=== PATIENT | male | born 1955 | race Caucasian/White ===

== ENCOUNTER 2018-06-07 11:38 | Inpatient (IN) | payer OTHER ==
[~2018-06-07] VITALS: Ht 177.8 cm; Wt 94.4 kg
[~2018-06-07 11:38] MED LIST: COMBIVENT INH; LEVAQUIN 500 M500 M2 PO; NEXIUM40 MG PO; PREDNISONE 1 MG1 M1 PO; PREDNISONE 20 M20 MG PO; SINGULAIR 10 MG10 M1 PO; SYMBICORT160 MCG/4. INH; TESSALON PERLE100 MG PO; VENTOLIN HFA 1818 GM INH
[2018-06-07 11:44] VITALS: BP 139/61
[2018-06-07 11:57] LABS: ABSOLUTE BASOPHILS 0.1 thou/uL (0.0-0.2); ABSOLUTE EOSINOPHILS 0.7 thou/uL (0.0-0.7); ABSOLUTE LYMPHOCYTES 1.9 thou/uL (0.8-5.3); ABSOLUTE MONOCYTES 0.7 thou/uL (0.0-1.2); BASOPHILS 0.7 %; HEMATOCRIT 50.9 % (42.0-52.0); HEMOGLOBIN 17.5 gm/dL (14.0-18.0); LYMPHOCYTES 18.5 %; MCH 32.3 pg (26.0-34.0); MCHC 34.3 g/dL (28.0-37.0); MCV 94.2 fL (80.0-100.0); MONOCYTES 6.5 %; MPV 7.3 fl. (7.2-11.1); NUCLEATED RBCS 0 /100WBC; PLATELET COUNT* 307 thou/uL (150-400); POLYS 67.3 %; RDW-CV 12.8 % (10.5-14.5); WBC 10.4 thou/uL (4.0-11.0)
[2018-06-07 12:07] LABS: ANION GAP 5 mmol/L (7-16); BUN 6 mg/dL (7-18); CALCIUM 8.9 mg/dL (8.5-10.1); CHLORIDE 105 mmol/L (98-107); CO2 28 mmol/L (21-32); CREATININE 0.7 mg/dL (0.6-1.3); GLUCOSE 115 mg/dL (70-99); SODIUM 138 mmol/L (136-145)
[2018-06-07 12:18] LABS: ALBUMIN 3.1 g/dL (3.4-5.0); ALKALINE PHOSPHATASE 114 U/L (46-116); LIPASE 52 U/L (73-393); MAGNESIUM 1.6 mg/dL (1.8-2.4); NT-PRO BRAIN NAT PEPTIDE 130 pg/mL (<300); SGOT 12 U/L (15-37); SGPT 19 U/L (30-65); TOTAL BILIRUBIN 0.8 mg/dL (<0.1-1.0); TOTAL PROTEIN 7.6 g/dL (6.4-8.2); TROPONIN-I LEVEL <0.06 ng/mL (<0.06)
[2018-06-07 14:44] VITALS: BP 142/74
[2018-06-07 14:53] VITALS: BP 142/73
--- NOTE | 2018-06-07 15:50 | NUR ---
ADMISSION ASSESSMENT COMPLETED REFER TO COMPUTER CHARTING. ROBOTICS MECHANIC TRACKING SR. PATIENT RESTING IN BED REPORTING NO PAIN, NAUSEA OR INCREASED SHORTNESS OF AIR. BED IN LOW AND LOCKED POSITION. CALL LIGHT WITHIN REACH. IV FLUIDS INFUSING IN RIGHT AC. ON 2 LITERS O2 VIA NASAL CANNULA. PATIENT UP SELF IN ROOM. PATIENT ORIENTATED TO ROOM AND CALL LIGHT. WILL CONTINUE TO MONITOR.
--- NOTE | 2018-06-07 18:17 | NUR ---
PATIENT CALLED FOR THIS NURSE TO COME TO PATIENTS ROOM. PATIENT UPSET NO TOLIET PAPER IN BATHROOM AND UPSET WITH MEAL. PATIENT GIVEN MENU AND NEW ORDER PLACED AND BROUGHT TO ROOM FROM HOUSE SUPERVISIOR. PATIENT REPORTING NOT SEEING HIS NURSE IN 45 MINS AND WAS NOT SATISFIED WITH THIS NURSE THE CHARGE NURSE WITH "ASSISTING ANOTHER NURSE WITH AN UPSET PATIENT IN ANOTHER ROOM." [employer]ENT REPORTING THAT SHE WELL WAS WITH THE UPSET PATIENT AND WAS UNABLE TO SATIFY PATIENT. WILL CONTINUE TO MONITOR THIS PATIENT THIS SHIFT.
[2018-06-07 20:00] VITALS: BP 148/48
[2018-06-07 23:30] VITALS: BP 134/61
[2018-06-08 04:00] VITALS: BP 126/72
[2018-06-08 05:16] LABS: HEMATOCRIT 50.2 % (42.0-52.0); HEMOGLOBIN 16.6 gm/dL (14.0-18.0); MCH 31.8 pg (26.0-34.0); MCHC 33.1 g/dL (28.0-37.0); MCV 96.1 fL (80.0-100.0); MPV 8.1 fl. (7.2-11.1); RBC 5.22 mil/uL (4.50-6.00); RDW-CV 12.9 % (10.5-14.5); WBC 13.3 thou/uL (4.0-11.0)
--- NOTE | 2018-06-08 05:22 | NUR ---
ASSUMED PT CARE AT 1930. NURSING ASSESSMENT COMPLETED AT START OF SHIFT. 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 PT COUGHING INTERMITTENTLY THROUGHOUT SHIFT, DENIES COUGHING UP SPUTUM, STATES IT'S DRY COUGH. IV FLUIDS INFUSING, HOURLY ROUNDING COMPLETED, CALL LIGHT WITHIN REACH.
[2018-06-08 05:33] LABS: CALCIUM 8.7 mg/dL (8.5-10.1); CREATININE 0.7 mg/dL (0.6-1.3); MAGNESIUM 1.6 mg/dL (1.8-2.4); POTASSIUM 4.2 mmol/L (3.5-5.1)
[2018-06-08 08:00] VITALS: BP 125/59
--- NOTE | 2018-06-08 12:00 | NUR ---
Pt is A&O. Resides at home with his . Independent with ADLs, continues to work outside of the home. No DME. Pt does not have home o2. No hx of HH or SNF. Goal is to return home at ia. Following for disposition.
[2018-06-08 12:35] VITALS: BP 131/71
--- NOTE | 2018-06-08 13:01 | NUR ---
VSS, ASSUMED CARE IN THE AM, ASSESSMENT PERFROMED AND CHARTED, FALL PRECAUTIONS IN PLACE AND CALL LIGHT IN REACH, PT IS A&O4 AND ON 2L NC AND UP AD YANI, PT DENIES ANY PAIN AND HIS GOAL IS TO IMPROVE BREATHIG AND WALK THE UNIT, PT IS TRACING SR ON THE MONITOR, WILL FOLLOW WITH PLAN OF CARE.
[2018-06-08 15:29] VITALS: BP 138/58
--- NOTE | 2018-06-08 18:20 | NUR ---
VSS, PT IS PROGRESSING TOWARDS GOAL, HIS BREATHING HAS IMPROVED AND IS ON RA AT THIS TIME, HE HAS WALKED THE UNIT AND IS TRACING SR ON THE MONITOR, PT DENIES ANY PAIN AND HOURLY ROUNDS COMPLETED,
[2018-06-08 20:00] VITALS: BP 140/60
[2018-06-08 22:55] LABS: CALCIUM 8.8 mg/dL (8.5-10.1); CREATININE 0.8 mg/dL (0.6-1.3); MAGNESIUM 1.9 mg/dL (1.8-2.4); POTASSIUM 4.2 mmol/L (3.5-5.1)
[2018-06-09 00:08] VITALS: BP 125/62
--- NOTE | 2018-06-09 03:04 | NUR ---
PT ALERT ORIENTED. UP AD YANI IN ROOM. ON RA O2 SAT 92% PT STATES THAT IS HIS NORM ON RA. TELEMETRY SHOWS ST. APPROX 2200 PT HAD 5 BEAT VT WITH SINUS BEAT THEN 25 BEAT V-TACH. ASYPTOMATIC PT STATES HE FELT NOTHING AND WAS SLEEPING. MAG AND BMP DRAWN (WNL). CARDIOLOGY CONSULTED. NO FURTHER EPISOIDS. WILL CONTINUE TO MONITOR.
[2018-06-09 04:39] VITALS: BP 151/64
[2018-06-09 07:30] VITALS: BP 121/56
--- NOTE | 2018-06-09 13:28 | EKG ---
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 VERMA : 1955 Requested By: Les Geller Order Number: [id number] MD: Jayme Latham Measurements Intervals [place] Rate: 84 P: 60 NE: 134 QRS: 34 QRSD: 86 T: 65 QT: 398 QTc: 471 Interpretive Statements Sinus rhythm Ventricular premature complex Probable left atrial enlargement Baseline wander in lead(s) V5 Compared to ECG 09/01/2017 11:06:45 Ventricular premature complex(es) now present Electronically Signed On 06-09-2018 13:28:43 CDT by Jayme Latham [email or web address] <ELECTRONICALLY SIGNED> By: Jayme Latham MD, [facility] 06/09/18 1328 1157 1157 Jayme Latham MD, [facility] /EPI
--- NOTE | 2018-06-09 13:31 | NUR ---
RECEIVED PT CARE 0700. HE IS ALERT AND ORIENTED X4. VSS. 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 AM ASSESSMENT CHARTED. MEDS PER MAR. O2 SAT 91% ON ROOM AIR. HE IS UP AD YANI IN HIS ROOM WITH BATHROOM PRIVILEDGES. GAIT IS STEADY. PLANNING FOR DC TO HOME TOMORROW IF STABLE. WILL CONTINUE TO MONITOR.
--- NOTE | 2018-06-09 15:14 | 2DMMODE ---
[place] [address] 2 D/M-MODE ECHOCARDIOGRAM Name: ROBERT BUTLER Room: [address] IN [facility]#: [id number] Admission: 06/07/18 Attend Phys: Jack Jones, Discharge: Date of : 57 Date of Service: 06/09/18 1514 Report #: [id number] THIS REPORT FOR: //name// APPROVED REPORT Study performed: 06/09/2018 11:00:47 EXAM: Comprehensive 2D, Doppler, and color-flow Echocardiogram Patient Location: In-Patient Room #: [facility] Status: routine BSA: 2.11 HR: 65 bpm BP: 121/56 mmHg Rhythm: NSR Other Information Study Quality: Good Indications Dyspnea NSVT 2D Dimensions LVEF(%): 68.65 (>50%) IVSd: 14.68 (7-11mm) LVOT Diam: 20.00 (18-24mm) LVDd: 38.54 mm PWd: 10.91 (7-11mm) Ascending Ao: 32.45 (22-36mm) LVDs: 23.96 (25-40mm) Aortic Root: 30.26 mm Kumar's LVEF: 68.65 % Volumes Left Atrial Volume (Systole) LA ESV Index: 32.20 mL/m2 Aortic Valve AoV Peak Nakul.: 1.54 m/s AO Peak Gr.: 9.49 mmHg LVOT Max P.93 mmHg AO Mean Gr.: 4.76 mmHg LVOT Mean P.66 mmHg LVOT Max V: 1.22 m/s AO V2 VTI: 31.59 cm LVOT Mean V: 0.74 m/s MONET (VTI): 2.72 cm2 LVOT V1 VTI: 27.35 [place] [address] 2 D/M-MODE ECHOCARDIOGRAM Name: ROBERT BUTLER Room: [address] IN .R.#: [id number] Admission: 06/07/18 Attend Phys: Jack Jones, Discharge: Date of : 57 Date of Service: 06/09/18 1514 Report #: [id number] E/A Ratio: 1.22 MV Decel. Time: 229.99 ms MV E Max Nakul.: 1.10 m/s MV PHT: 66.70 ms MVA (PHT): 3.30 cm2 TDI E/Lateral E': 9.17 E/Medial E': 8.46 Medial E' Nakul.: 0.13 m/s Lateral E' Nakul.: 0.12 m/s Pulmonary Valve PV Peak Nakul.: 1.05 m/s PV Peak Gr.: 4.39 mmHg Left Ventricle The left ventricle is normal size. There is normal LV segmental wall motion. Mild concentric left ventricular hypertrophy. Left ventricular systolic function is normal. The left ventricular ejection fraction is within the normal range. LVEF is 65-70%. The left ventricular diastolic function is normal. Right Ventricle Right ventricle is dilated. The right ventricular systolic function is mildly reduced Atria The left atrium size is moderately dilated Right atrium is dilated. Aortic Valve The aortic valve is normal in structure. No aortic regurgitation is present. There is no aortic valvular stenosis. Mitral Valve Mitral valve leaflets are mildly thickened. Trace mitral regurgitation. No evidence of mitral valve stenosis. Tricuspid Valve The tricuspid valve is normal in structure. Unable to assess PA pressure. Trace tricuspid regurgitation. Pulmonic Valve The pulmonary valve is normal in structure. There is no pulmonic [place] [address] 2 D/M-MODE ECHOCARDIOGRAM Name: ROBERT BUTLER Room: [address] IN [facility]#: [id number] Admission: 06/07/18 Attend Phys: Jack Jones, Discharge: Date of : 57 Date of Service: 06/09/18 1514 Report #: [id number] The aortic root is normal in size. IVC is normal in size and collapses with >50% inspiration Pericardium There is no pericardial effusion. <Conclusion> The left ventricle is normal size. Mild concentric left ventricular hypertrophy. LVEF is 65-70%. There is normal LV segmental wall motion. Right ventricle is dilated. The right ventricular systolic function is mildly reduced The left atrium size is moderately dilated Right atrium is dilated. There is no aortic valvular stenosis. No aortic regurgitation is present. Mitral valve leaflets are mildly thickened. No evidence of mitral valve stenosis. Trace mitral regurgitation. <ELECTRONICALLY SIGNED> By: Jayme Latham MD, FACC 06/09/18 1514 1514 1514 Jayme Latham MD, FACC /INF
[2018-06-09 15:40] VITALS: BP 119/49
--- NOTE | 2018-06-09 19:04 | NUR ---
PATIENT PARTIALLY PROGRESSING TOWARDS GOALS. UP AMBULATORY IN ROOM WITH BATHROOM PRIVILEDGES. GAIT IS STEADY. 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 CARDIOLOGY AND DR MADSEN NOTIFIED. NEW ORDERS RECEIVED FOR CARDIZEM GTT. BLOOD PRESSURE STABLE. PATIENT UPDATED ON PLAN OF CARE. HE IS TOLERATING HIS DIET WELL WITHOUT ANY NAUSEA OR VOMITING. HOURLY ROUNDING CHARTED. CALL LIGHT WITHIN REACH. WILL CONTINUE TO MONITOR.
[2018-06-09 20:00] VITALS: BP 97/51
[2018-06-10] VITALS (8 sets, daily range): BP systolic 103–148; BP diastolic 60–93
--- NOTE | 2018-06-10 03:02 | NUR ---
PT ALERT ORIENTED. UP AD YANI IN ROOM. ON CARDIZEM QTT AT 20MG/HR. INITALLY TELEMETRY AFIB RVR UP TO 150S. HR NOW IN THE 90S. WILL CONTINUE TO MONITOR.
--- NOTE | 2018-06-10 06:33 | NUR ---
CARDIZEM QTT TITRATED DOWN TO 15MG/HR. TELEMETRY REMAINS AFIB 80S-90S. OCCASIONAL NONPRODUCTIVE COUGHING NOTED.
--- NOTE | 2018-06-10 17:22 | NUR ---
ASSUMED CARE OF PT AT 0730. PT REAMINES A&O CALM AND COOPERATIVE. PT HAS HAD NO C/O PAIN AND VSS ON 2L VIA NC. PT UP AD YANI IN HIS ROOM AND HAS A STEADY GAIT. PT STARTED ON ORAL CARDIZEM AND IV CARDIZEM DISCONTINUED. RATE HAS SINCE BEEN IN THE 60'S. PT HAS A GOOD APPETITE AND HAS ATE GREATER THAN 75% OF HIS MEALS. PT CONTINUES TO HAVE A HARSH NONPRODUCTIVE COUGH. NURSING WILL CONTINUE TO MONITOR FOR COMFORT AND SAFTEY.
[2018-06-11] VITALS: BP 153/71
[2018-06-11 04:00] VITALS: BP 158/68
--- NOTE | 2018-06-11 05:13 | NUR ---
ASSUMED PT CARE AT 19:15 DAY SHIFT NURSE HAS LEFT AND LEFT REPORT PAPER. PT IS ALERT AWAKE ORIENTED X 4. AT BEDSIDE., DOES NOT COMLAIN OF ANY PAIN. PT HAS BEEN SINUS RYTH ON THE MONITOR FOR THE WHOLE NIGHT THOUGH HE WAS SAID TO BE A FIB ON REPRT PAPER. PT IS RESTING IN BED. SLEPT DURING THE WHOLE NIGHT. POSSIBLE DISCHARGE PENDING FOR TODAY.
[2018-06-11 08:00] VITALS: BP 129/67
[2018-06-11] MEDS ORDERED: AZITHROMYCIN 2250 MG PO (11:08)
[2018-06-11] MEDS ORDERED: ASPIR 8181 MG PO (11:08)
[2018-06-11] MEDS ORDERED: CARDIZEM CD240 MG PO (11:08)
[2018-06-11] MEDS ORDERED: PREDNISONE 10 M10 MG PO (11:08)
[2018-06-11] MEDS ORDERED: CEFDINIR300 MG PO (11:08)
[2018-06-11] MEDS ORDERED: IPRAT-ALBUT 0.5-3 ML INH (11:08)
[2018-06-11] MEDS ORDERED: FLECAINIDE ACET50 M1 PO (11:08)
[2018-06-11] MEDS ORDERED: MUCINEX600 MG PO (11:08)
[2018-06-11 11:40] VITALS: BP 155/58
[2018-06-11 12:34] VITALS: BP 103/60
--- NOTE | 2018-06-11 12:53 | EKG ---
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: : 1955 Requested By: Heidi Son Order Number: [id number] MD: Fran Redmond Measurements Intervals [place] Rate: 156 P: PA: QRS: 32 QRSD: 82 T: 224 QT: 252 QTc: 406 Interpretive Statements Atrial fibrillation with rapid V-rate Repolarization abnormality, prob rate related Baseline wander in lead(s) V6 Compared to ECG 06/07/2018 11:57:25 Early repolarization now present Sinus rhythm no longer present Ventricular premature complex(es) no longer present Electronically Signed On 06-11-2018 12:53:03 CDT by Fran Redmond [email or web address] <ELECTRONICALLY SIGNED> By: Fran Redmond MD, [facility] 06/11/18 1253 1645 1645 Fran Redmond MD, [facility] /EPI
--- NOTE | 2018-06-11 13:14 | NUR ---
ASSUMED CARE OF PT THIS AM ASSESSED AND DOCUMENTED. PT D/C'D TO HOME. ALL CONSULTS OK WITH D/C. IV AND CARDIAC MONITER D/C'D. EDUCATION GIVEN RE FOLLOW-UPS, MEDICATIONS, AND DRS ORDERS. SCRIPTS GIVEN. ALL BELONGINGS PACKED UP AND LEFT WITH PT ACCOMPANIED BY .
== END 2018-06-11 13:15 | disposition home or self-care (01) | DRG 189 ==
LOC: M.ERS 11:38 → M.2W 13:52 → M.TBA-ER 13:52 → M.2W 14:51
PROVIDERS: Emergency Medicine Emergency Medical Services; Internal Medicine; ADMIT Internal Medicine
DX: J96.01 Acute respiratory failure with hypoxia (principal); R65.11 Systemic inflammatory response syndrome (SIRS) of non-infectious origin with acute organ dysfunction; J44.1 Chronic obstructive pulmonary disease with (acute) exacerbation; E87.2 Acidosis; I47.1 Supraventricular tachycardia; J20.8 Acute bronchitis due to other specified organisms; K21.9 Gastro-esophageal reflux disease without esophagitis; I10 Essential (primary) hypertension; I48.91 Unspecified atrial fibrillation; F17.210 Nicotine dependence, cigarettes, uncomplicated; Z79.899 Other long term (current) drug therapy; Z79.82 Long term (current) use of aspirin

== ENCOUNTER 2018-07-20 20:51 | Inpatient (IN) | payer OTHER ==
[~2018-07-20] VITALS: Ht 177.8 cm; Wt 91.6 kg
[~2018-07-20 20:51] MED LIST changes: +ASPIR 8181 MG PO; +AZITHROMYCIN 2250 MG PO; +CARDIZEM CD240 MG PO; +CEFDINIR300 MG PO; +FLECAINIDE ACET50 M1 PO; +IPRAT-ALBUT 0.5-3 ML INH; +MUCINEX600 MG PO; +PREDNISONE 10 M10 MG PO
[2018-07-20 21:03] VITALS: BP 137/85
[2018-07-20 21:46] LABS: ABSOLUTE BASOPHILS 0.1 thou/uL (0.0-0.2); ABSOLUTE EOSINOPHILS 0.9 thou/uL (0.0-0.7); ABSOLUTE LYMPHOCYTES 3.5 thou/uL (0.8-5.3); ABSOLUTE MONOCYTES 0.9 thou/uL (0.0-1.2); BASOPHILS 0.7 %; EOSINOPHILS 5.7 %; HEMOGLOBIN 17.9 gm/dL (14.0-18.0); LYMPHOCYTES 22.7 %; MCH 31.5 pg (26.0-34.0); MCHC 33.7 g/dL (28.0-37.0); MCV 93.4 fL (80.0-100.0); MONOCYTES 5.9 %; MPV 7.5 fl. (7.2-11.1); NUCLEATED RBCS 0 /100WBC; PLATELET COUNT* 290 thou/uL (150-400); RBC 5.67 mil/uL (4.50-6.00); RDW-CV 13.3 % (10.5-14.5); WBC 15.4 thou/uL (4.0-11.0)
[2018-07-20 21:55] LABS: ANION GAP 8 mmol/L (7-16); BUN 9 mg/dL (7-18); CALCIUM 8.6 mg/dL (8.5-10.1); CHLORIDE 105 mmol/L (98-107); CO2 27 mmol/L (21-32); CREATININE 0.7 mg/dL (0.6-1.3); GLUCOSE 94 mg/dL (70-99); SODIUM 140 mmol/L (136-145)
[2018-07-20 21:58] LABS: INR 1.1; PROTIME 11.1 Seconds (9.20-11.50)
[2018-07-20 22:10] LABS: ALBUMIN 3.1 g/dL (3.4-5.0); ALKALINE PHOSPHATASE 118 U/L (46-116); LIPASE 42 U/L (73-393); SGOT 12 U/L (15-37); SGPT 18 U/L (30-65); TOTAL PROTEIN 7.1 g/dL (6.4-8.2); TROPONIN-I LEVEL <0.06 ng/mL (<0.06)
[2018-07-20 23:45] VITALS: BP 159/72
[2018-07-21] VITALS: BP 158/81
[2018-07-21 04:00] VITALS: BP 121/65
[2018-07-21 07:48] VITALS: BP 114/66
--- NOTE | 2018-07-21 09:39 | EKG ---
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 : 1955 Requested By: Gabriela Lynch Order Number: [id number] MD: Jayme Latham Measurements Intervals [place] Rate: 70 P: 63 MI: 141 QRS: 44 QRSD: 88 T: 72 QT: 419 QTc: 453 Interpretive Statements Sinus rhythm Probable left atrial enlargement Baseline wander in lead(s) V4 Compared to ECG 06/09/2018 16:45:26 Atrial fibrillation no longer present Early repolarization no longer present Electronically Signed On 07-21-2018 9:39:46 CDT by Jayme Latham [email or web address] <ELECTRONICALLY SIGNED> By: Jayme Latham MD, [facility] 07/21/18 0939 05 05 Jayme Latham MD, [facility] /EPI
[2018-07-21 12:00] VITALS: BP 137/77
[2018-07-21 15:38] VITALS: BP 136/62
[2018-07-21 20:00] VITALS: BP 132/49
[2018-07-22 07:58] VITALS: BP 107/49
[2018-07-22] MEDS ORDERED: SINGULAIR 10 MG10 M1 PO (08:53)
[2018-07-22] MEDS ORDERED: NEXIUM40 MG PO (08:53)
[2018-07-22] MEDS ORDERED: CEFDINIR300 MG PO (08:53)
[2018-07-22] MEDS ORDERED: AZITHROMYCIN 2250 MG PO (08:53)
[2018-07-22] MEDS ORDERED: MUCINEX600 MG PO (08:53)
[2018-07-22] MEDS ORDERED: PREDNISONE 10 M10 MG PO (08:53)
[2018-07-22 09:32] VITALS: BP 107/49
[2018-07-22 11:14] LABS: HEMATOCRIT 47.8 % (42.0-52.0); HEMOGLOBIN 15.7 gm/dL (14.0-18.0); MCHC 32.8 g/dL (28.0-37.0); MCV 94.3 fL (80.0-100.0); MPV 8.3 fl. (7.2-11.1); RBC 5.07 mil/uL (4.50-6.00); RDW-CV 13.6 % (10.5-14.5); WBC 29.9 thou/uL (4.0-11.0)
[2018-07-22 11:28] LABS: CALCIUM 8.5 mg/dL (8.5-10.1); CREATININE 1.1 mg/dL (0.6-1.3); MAGNESIUM 1.7 mg/dL (1.8-2.4); POTASSIUM 4.1 mmol/L (3.5-5.1)
--- NOTE | 2018-07-22 11:30 | CON ---
[address] [address] CONSULTATION Name: ROBERT BUTLER Room: [address] IN M.R.#: [id number] Admission: 07/20/18 Attend Phys: Albino Garcia Discharge: Date of : 57 Report #: [id number] THIS REPORT FOR: //name// CC: Shaka Alcocer DATE OF SERVICE: 07/21/2018 REQUESTED BY: Dr. Jones. INDICATION FOR CONSULTATION: COPD exacerbation. HISTORY OF PRESENT ILLNESS: This is a 63-year-old gentleman with past medical history as mentioned below. 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 The patient was only recently admitted to this hospital and was discharged on 06/11/2018. Previous admission was with COPD exacerbation. During the previous hospitalization, the patient did have supraventricular tachycardia, paroxysmal as well as atrial fibrillation with RVR. He was seen by the cardiology service. He was started on cardiac medications. He eventually was maintaining a sinus rhythm prior to discharge. The patient therefore was not on full anticoagulation, was only on aspirin upon last discharge. He was given a prednisone taper upon last discharge. The patient yesterday was scheduled for a stress test. He did undergo the stress test. He was told to hold his Cardizem as well as flecainide for the stress test. The patient was reported to be in atrial fibrillation at the time of the stress test. Subsequent to this, he developed increasing shortness of breath, which is the reason for this admission. At this time, he essentially has no other complaints with the exception that he does have a dry cough. There is no chest pain. There are no upper respiratory complaints. There is no heartburn. There is no swelling of lower extremities. He does work late at night, usually in the evenings up to 11 at times up to even 3:00 a.m. He says that he does not perceive any significant disturbed sleep and sleepiness during the day. He usually sleeps on his sides. I did, however, consider the possibility that the patient may have some sleepiness during the day, but he may not be fully aware of it on account of it being present for a long period of time. REVIEW OF SYSTEMS: A 12-point review of systems is performed and is negative except as mentioned above. PAST MEDICAL HISTORY: COPD. I do not have previous PFTs available. He has had a recent echocardiogram. The patient's left ventricular ejection fraction is 65-70%. His pulmonary artery systolic is not elevated during this echo. He has also had a stress test just yesterday, which is unremarkable [place] [address] CONSULTATION Name: ROBERT BUTLER Room: [address] IN .R.#: [id number] Admission: 07/20/18 Attend Phys: Albino Garcia Discharge: Date of : 57 Report #: [id number] of atrial fibrillation as mentioned. The patient also did have a history of atrial fibrillation as well as supraventricular tachycardia during the previous hospitalization. He is currently in a sinus rhythm. Gastroesophageal reflux disease, collapsed lung 5 years ago. SOCIAL HISTORY: Active smoker, has cut down to 1/2 pack a day. He says he smoked more than a pack a day for several decades in the past. He has had some exposure to coal dust at work. He says that he drinks 2 or 3 beers around 3 times a week. No known history of illegal drug use. CURRENT MEDICATIONS: List in [facility] reviewed. HOME MEDICATIONS: List also in [facility] reviewed. FAMILY HISTORY: There is no pertinent family history. ALLERGIES: No known drug allergies. PHYSICAL EXAMINATION: GENERAL: He is alert, awake and oriented, does not appear to be in any distress at this time. VITAL SIGNS: Has a pulse of 71 and a blood pressure of 114/66. He is on room air. He is maintaining O2 saturations in the low 90s. He is afebrile with a temperature of 36.4. His respiratory rate is 18-20. HEENT: Head is normocephalic and atraumatic. Pupils are equal and reactive. There is no throat erythema. He does have a narrow airway. NECK: Does not show raised JVP, asymmetry, mass or lymph nodes. CHEST: Symmetrical expansion on inspection and palpation. On auscultation, there are loud inspiratory as well as expiratory wheezes. Expirations are prolonged. Breath sounds are bilaterally equal. HEART: Regular. There is no murmur. ABDOMEN: Soft and nontender. EXTREMITIES: Lower extremities show no edema, no calf tenderness. SKIN: Dry and intact. NEUROLOGICAL: Moves all extremities bilaterally equally and spontaneously with no focal deficit identified. The patient's chest x-ray as well as lab work is in [facility] and this is reviewed. ASSESSMENT AND PLAN: 1. Shortness of breath. The patient does appear to be actively bronchospastic on exam. Also, he had an episode of atrial fibrillation yesterday. The primary reason for shortness of breath appears to be bronchospasm. 2. Chronic obstructive pulmonary disease exacerbation. In the short term, I agree with current therapy. He is on DuoNeb as well as Solu-Medrol. He will [address] [place] [address] CONSULTATION Name: ROBERT BUTLER Room: [address] IN M.R.#: [id number] Admission: 07/20/18 Attend Phys: Albino Garcia Discharge: Date of : 57 Report #: [id number] benefit from further pulmonary testing as an outpatient. Suggest obtaining outpatient pulmonary function tests later. Recommend smoking cessation. Symbicort is reasonable. Suggest adding a long-acting anticholinergic agent, detention. The patient currently is also on budesonide, which I will leave it. I do not see any definite infiltrate in the patient's chest x-ray. There is a vague radiopaque density at the left lung base as well as right middle lobe. Therefore, I did not broaden antibiotic coverage at this time. Noted the patient did receive cephalosporin as well as macrolide last month and therefore, I will repeat a chest x-ray tomorrow. In case his chest x-rays worsen, then we certainly can broaden antibiotic coverage possibly to include MRSA coverage. If he remains stable, then doxycycline could be a consideration; however, I decided not to make any change at this time. 3. Gastroesophageal reflux disease. He is not complaining of heartburn, but this may also be underlying contributing to his cough. Therefore, for now, I will go ahead and give him a proton pump inhibitor. 4. Atrial fibrillation. He had an episode yesterday. He is currently in a sinus rhythm. Defer followup to the cardiology service. 5. Possible underlying obstructive sleep apnea. He may have daytime sleepiness as well and he may not be fully aware of this on account of this being present for a long period of time, therefore I would go ahead and do a nocturnal pulse oximetry tonight and assess if he needs oxygen upon discharge. We will also suggest considering an outpatient sleep study. 6. Deep vein thrombosis prophylaxis with Lovenox. Thanks for this consultation. <ELECTRONICALLY SIGNED> By: Tarik Baker MD 07/22/18 1130 1304 [id number] Baker MD /nt
== END 2018-07-22 11:25 | disposition home or self-care (01) | DRG 193 ==
LOC: M.ERS 20:51 → M.2W 23:04 → M.TBA-ER 23:04 → M.2W 23:50
PROVIDERS: Emergency Medicine; Internal Medicine; ADMIT Internal Medicine
DX: J15.9 Unspecified bacterial pneumonia (principal); J96.01 Acute respiratory failure with hypoxia; R65.11 Systemic inflammatory response syndrome (SIRS) of non-infectious origin with acute organ dysfunction; J44.1 Chronic obstructive pulmonary disease with (acute) exacerbation; J44.0 Chronic obstructive pulmonary disease with (acute) lower respiratory infection; K21.9 Gastro-esophageal reflux disease without esophagitis; F17.210 Nicotine dependence, cigarettes, uncomplicated; I48.0 Paroxysmal atrial fibrillation; Z79.899 Other long term (current) drug therapy; J20.8 Acute bronchitis due to other specified organisms